=== PATIENT | male | born 1955 | race American Indian/Alaskan Native ===

== ENCOUNTER 2018-05-25 14:36 | Emergency (ER) | payer OTHER, BC ==
--- NOTE | 2018-05-25 14:48 | PDOC ---
Rapid Medical Evaluation Time Seen by Provider: 05/25/18 14:45 Medical Evaluation: Allergies Allergy/AdvReac Type Severity Reaction Status Date / Time No Known Allergies Allergy Verified 11/16/16 08:16 I have performed a brief in-person evaluation of this patient. The patient presents with a chief complaint of: right knee pain. banged right knee yesterday. Now has a bump that is tender. Patient is on Plavix. Pertinent physical exam findings: swelling to medial left knee area that is TTP. I have ordered the following: nothing The patient will proceed to the ED for further evaluation. Discharge Disposition - Diagnosis Knee pain, right - Referrals - Patient Instructions - Post Discharge Activity
[2018-05-25 14:50] VITALS: BP 115/85; PULSE 75; TEMP 98.5; BMI 27.9
--- NOTE | 2018-05-25 15:29 | PDOC ---
History of Present Illness - General Chief Complaint: Pain, Acute Stated Complaint: LEG PAIN Time Seen by Provider: 05/25/18 14:45 History Source: Patient Exam Limitations: No Limitations - History of Present Illness Initial Comments: 05/25/18 15:23 62-year-old male presents to the emergency with complaints of right inner knee pain. Patient states yesterday opened the car door when it struck his right knee. Patient states was able to ambulate and has no discomfort but noted the bump this morning and was concerned since he is currently on Plavix. Patient otherwise has no other complaints. Timing/Duration: 24 hours Severity: mild Associated Symptoms: reports: denies symptoms Past History - Travel Traveled outside of the country in the last 30 days: No - Past Medical History Allergies/Adverse Reactions: Allergies Allergy/AdvReac Type Severity Reaction Status Date / Time No Known Allergies Allergy Verified 11/16/16 08:16 Home Medications: Ambulatory Orders Gabapentin 300 mg PO BID 08/26/12 Levothyroxine [Synthroid -] 50 mcg PO DAILY 01/14/13 Metoprolol Succinate [Toprol XL -] 12.5 mg PO DAILY 01/14/13 Atorvastatin Ca [Lipitor] 80 mg PO DAILY 01/03/14 metFORMIN HCL [Glucophage -] 1,000 mg PO BID 01/03/14 Fluoxetine HCl [Prozac -] 40 mg PO DAILY 02/21/14 Clopidogrel Bisulfate [Plavix] 75 mg PO ASDIR 05/25/18 Anemia: No Asthma: No Cancer: No Cardiac Disorders: Yes (MITRAL VALVE PROLAPSE) CVA: No COPD: No CHF: No Dementia: No Diabetes: Yes (NIDDM) GI Disorders: Yes (DIVERTICULOSIS) Disorders: Yes (PROSTATITIS) HTN: Yes Hypercholesterolemia: Yes Liver Disease: No Seizures: No Thyroid Disease: Yes (HYPO) - Surgical History Abdominal Surgery: No Appendectomy: No Cardiac Surgery: No Cholecystectomy: No Lung Surgery: No Neurologic Surgery: No Orthopedic Surgery: Yes (RT WRIST SX, FUSION OF L 4-5, FUSION OF C5, C7,) - Immunization History Immunization Up to Date: No - Suicide/Smoking/Psychosocial Hx Smoking Status: No Smoking History: Never smoked Have you smoked in the past 12 months: No Number of Cigarettes Smoked Daily: 0 Hx Alcohol Use: No Drug/Substance Use Hx: No Substance Use Type: None Hx Substance Use Treatment: No Patient Lives Alone: No Review of Systems - Review of Systems Able to Perform ROS?: No Constitutional: No: Symptoms Reported Musculoskeletal: Yes: Joint Swelling Integumentary: Yes: Lumps. No: Bruising Neurological: No: Numbness, Paresthesia, Tingling, Dizziness *Physical Exam - Vital Signs Last Vital Signs Temp Pulse Resp BP Pulse Ox 98.5 F 75 16 115/85 99 05/25/18 14:47 05/25/18 14:47 05/25/18 14:47 05/25/18 14:47 05/25/18 14:47 - Physical Exam General Appearance: Yes: Nourished, Appropriately Dressed. No: Apparent Distress Vascular Pulses: Dorsalis-Pedis (R): 2+ Musculoskeletal: positive: Other (noted semi-firm mass approx. 3 x 4 cm to medial aspect of right knee. No skin discoloration. FROM of rt knee joint) ED Treatment Course - RADIOLOGY Radiology Studies Ordered: Category Date Time Status KNEE 3 POS-RIGHT [RAD] Stat Radiology 05/25/18 15:19 Ordered Medical Decision Making - Medical Decision Making 05/25/18 15:29 Patient right knee injury here for evaluation. Exam with semi-firm mass to the medial aspect of right patella. X-ray ordered to rule out etiology. 05/25/18 15:35 X-ray negative for acute findings. Will await final report from radiologist but will discharge patient home in the meanwhile. Patient left phone number to be contacted if needs follow-up. *DC/Admit/Observation/Transfer Diagnosis at time of Disposition: Knee pain, right - Discharge Dispostion Disposition: HOME Condition at time of disposition: Good - Referrals Referrals: Tone Hunter MD [Primary Care Provider] - - Patient Instructions Printed Discharge Instructions: DI for Contusion Additional Instructions: Continue to observe area and if noted to increase in size please return to the ED. Otherwise take Motrin or Tylenol for discomfort and apply ice as much as you can tolerate for the next 3 days. - Post Discharge Activity
== END 2018-05-25 15:39 | disposition home or self-care (01) ==
LOC: JERFT 14:36
DX: S80.01XA Contusion of right knee, initial encounter (principal); V88.8XXA Person injured in other specified noncollision transport accidents involving motor vehicle, nontraffic, initial encounter; Y93.89 Activity, other specified; Y92.89 Other specified places as the place of occurrence of the external cause; Y99.8 Other external cause status; I10 Essential (primary) hypertension; E11.9 Type 2 diabetes mellitus without complications; Z79.84 Long term (current) use of oral hypoglycemic drugs; E78.00 Pure hypercholesterolemia, unspecified; R01.1 Cardiac murmur, unspecified; E03.9 Hypothyroidism, unspecified; Z87.19 Personal history of other diseases of the digestive system; Z87.448 Personal history of other diseases of urinary system
CPT/HCPCS: 73562-TC-RT-FY; 99281-25

== ENCOUNTER 2019-04-30 06:42 | Day surgery (SDC) | payer OTHER, BC | END 2019-04-30 09:46 | disposition home or self-care (01) | LOC: JASU-ENDO 06:42 ==

== ENCOUNTER 2021-12-26 11:08 | Emergency (ER) | payer OTHER, BC ==
[2021-12-26 11:22] VITALS: BP 159/87; PULSE 88; TEMP 97.1; BMI 27.2
[2021-12-26] MEDS ORDERED: KETOROLAC TROMETHAMINE 30 MG/1 ML VIAL IM ONE (11:51)
[2021-12-26] MEDS ORDERED: KETOROLAC TROMETHAMINE 30 MG/1 ML VIAL ONE (11:55)
== END 2021-12-26 12:33 | disposition home or self-care (01) ==
LOC: JERFT 11:08
PROC: 3E0233Z Introduction of Anti-inflammatory into Muscle, Percutaneous Approach (ICD-10-PCS; principal; 2021-12-26)
DX: S60.221A Contusion of right hand, initial encounter (principal); W10.9XXA Fall (on) (from) unspecified stairs and steps, initial encounter; Y92.9 Unspecified place or not applicable
CPT/HCPCS: 73130-TC-RT-FY; 96372; 99284-25

== ENCOUNTER 2023-07-14 09:47 | Emergency (ER) | payer OTHER, BC ==
[2023-07-14 10:03] VITALS: BMI 24.7
[2023-07-14 11:31] LABS: URINE APPEARANCE CLEAR; URINE BILIRUBIN NEGATIVE (NEGATIVE); URINE COLOR YELLOW; URINE GLUCOSE (UA) 3+ (NEGATIVE); URINE KETONE NEGATIVE (NEGATIVE); URINE LEUK ESTERASE NEGATIVE (NEGATIVE); URINE NITRITE NEGATIVE (NEGATIVE); URINE PROTEIN NEGATIVE (NEGATIVE); URINE UROBILINOGEN 0.2 mg/dL (0.2-1.0)
[2023-07-14 11:32] LABS: EPI CELLS 1 /uL (0-25.1); HYALINE CASTS 0 /uL (0-3.1); URINE BACTERIA 0 /uL (0-1359); URINE RBC 8 /uL (0-23.9); URINE WBC 2 /uL (0-25.8)
[2023-07-14 11:45] LABS: BASO % 0.9 % (0-2.0); EOS % 2.1 % (0-4.5); HEMATOCRIT 43.5 % (35.4-49); LYMPH % 23.4 % (8-40); MCH 30.4 pg (25.7-33.7); MCHC 34.4 g/dl (32.0-35.9); MEAN CELL VOLUME 88.2 fl (80-96); MEAN PLT VOLUME 8.6 fl (7.5-11.1); MONO % 7.9 % (3.8-10.2); NEUT % 65.7 % (42.8-82.8); PLATELET COUNT 215 10^3/uL (134-434); RBC 4.93 M/mm3 (4.00-5.60); RDW 14.2 % (11.9-15.9); WHITE BLOOD COUNT 6.8 K/mm3 (4.0-10.0)
[2023-07-14 12:07] LABS: POTASSIUM 4.8 mmol/L (3.5-5.1)
[2023-07-14 12:09] LABS: ALBUMIN 3.8 g/dl (3.4-5.0); CALCIUM 9.6 mg/dL (8.5-10.1)
[2023-07-14 12:11] LABS: BLOOD UREA NITROGEN 28.8 mg/dL (7-18)
[2023-07-14 12:13] LABS: CREATININE 0.9 mg/dL (0.55-1.3)
[2023-07-14 12:14] LABS: BILIRUBIN,TOTAL 0.4 mg/dL (0.2-1); TOT PROT 6.8 g/dl (6.4-8.2)
[2023-07-14 12:31] LABS: LACTIC ACID 2.4 mmol/L (0.4-2.0)
[2023-07-14 15:59] VITALS: BP 118/75; PULSE 94; RESP 18; TEMP 98.1
== END 2023-07-14 16:38 | disposition home or self-care (01) ==
LOC: JER 09:47
DX: R10.30 Lower abdominal pain, unspecified (principal)
CPT/HCPCS: 36415; 74177-TC; 80053; 81003; 83605; 85025; 87086; 99285-25; Q9967

== ENCOUNTER 2024-02-06 03:56 | Day surgery (SDC) | payer OTHER, BC ==
[2024-01-27 13:36] VITALS: BMI 26.5
[2024-02-06] MEDS ORDERED: ONDANSETRON 4 MG/2 ML VIAL IVPUSH PRN (11:31)
[2024-02-06] MEDS ORDERED: oxyCODONE HCL 5 MG TABLET PO PRN (11:31)
[2024-02-06] MEDS ORDERED: ACETAMINOPHEN 325 MG TABLET (FP) PO PRN (11:31)
[2024-02-06] MEDS ORDERED: LACTATED RINGERS SOLUTION 1,000 ML IV SCH (11:45)
[2024-02-06] MEDS ORDERED: PROPOFOL 20 ML ONE ×2 (11:52→12:41)
[2024-02-06] MEDS ORDERED: MIDAZOLAM HCL 2 MG/2 ML SINGLE DOSE VIAL ONE ×2 (11:52→12:26)
[2024-02-06] MEDS ORDERED: LIDOCAINE HCL 1%, 10 MG/ML (20ML VIAL) ONE (12:22)
[2024-02-06] MEDS ORDERED: BUPIVACAINE HCL/PF 0.5% (5MG/ML) 10 ML VIAL ONE (12:22)
[2024-02-06] MEDS: ceFAZolin SODIUM 1 GM VIAL IVPB ONE (12:38)
[2024-02-06] MEDS: BUPIVACAINE HCL/PF 0.5% (5MG/ML) 10 ML VIAL IJ ONE (12:44)
[2024-02-06] MEDS: LIDOCAINE HCL 1%, 10 MG/ML (20ML VIAL) INF ONE (12:44)
[2024-02-06] MEDS ORDERED: KETOROLAC TROMETHAMINE 30 MG/1 ML VIAL ONE (13:04)
[2024-02-06] MEDS ORDERED: ONDANSETRON 4 MG/2 ML VIAL ONE (13:04)
[2024-02-06 13:45] VITALS: RESP 18
[2024-02-06 14:27] VITALS: BP 138/74; PULSE 78; TEMP 98.6
== END 2024-02-06 14:35 | disposition home or self-care (01) ==
LOC: JASU-SURG 03:56
PROVIDERS: ATTEND Orthopaedic Surgery
PROC: 0LN70ZZ Release Right Hand Tendon, Open Approach (ICD-10-PCS; principal; 2024-02-06 12:00)
DX: M65.321 Trigger finger, right index finger (principal)
CPT/HCPCS: 36415; 82010; 82962; 88304-TC

== ENCOUNTER 2024-02-17 14:37 | Emergency (ER) | payer OTHER, BC ==
[2024-02-17 14:46] VITALS: BP 144/80; PULSE 70; RESP 20; TEMP 97.1; BMI 25.7
[2024-02-17] MEDS ORDERED: guaiFENesin/D-METHORPHAN HB 10 ML UNIT-DOSE CUPS ONE (15:06)
[2024-02-17] MEDS: guaiFENesin/D-METHORPHAN HB 10 ML UNIT-DOSE CUPS PO ONE (15:07)
== END 2024-02-17 15:29 | disposition home or self-care (01) ==
LOC: JERFT 14:37
DX: R05.9 Cough, unspecified (principal); R09.81 Nasal congestion; B34.9 Viral infection, unspecified; Z20.822 Contact with and (suspected) exposure to COVID-19
CPT/HCPCS: 0241U-QW; 99283-25

== ENCOUNTER 2024-04-24 10:50 | Emergency (ER) | payer OTHER, BC ==
[2024-04-24 11:20] VITALS: BMI 27.2
[2024-04-24] MEDS ORDERED: ACETAMINOPHEN INJECTION 100 ML IVPB ONE (12:46)
[2024-04-24 13:26] LABS: PH,URINE 5.5 (5.0-8.0); URINE APPEARANCE CLEAR; URINE BILIRUBIN NEGATIVE (NEGATIVE); URINE COLOR YELLOW; URINE GLUCOSE (UA) 3+ (NEGATIVE); URINE KETONE NEGATIVE (NEGATIVE); URINE LEUK ESTERASE NEGATIVE (NEGATIVE); URINE NITRITE NEGATIVE (NEGATIVE); URINE PROTEIN NEGATIVE (NEGATIVE); URINE UROBILINOGEN 0.2 mg/dL (0.2-1.0)
[2024-04-24 13:29] LABS: BASO % 0.7 % (0-2.0); EOS % 2.7 % (0-4.5); HEMATOCRIT 41.6 % (35.4-49); HEMOGLOBIN 14.1 GM/dL (11.7-16.9); LYMPH % 27.4 % (8-40); MCH 29.5 pg (25.7-33.7); MCHC 33.8 g/dl (32.0-35.9); MEAN CELL VOLUME 87.2 fl (80-96); MEAN PLT VOLUME 8.6 fl (7.5-11.1); MONO % 10.3 % (3.8-10.2); NEUT % 58.9 % (42.8-82.8); PLATELET COUNT 196 10^3/uL (134-434); RBC 4.77 M/mm3 (4.00-5.60); RDW 14.3 % (11.9-15.9); WHITE BLOOD COUNT 5.8 K/mm3 (4.0-10.0)
[2024-04-24 13:38] LABS: ACTIVATED PTT 29.7 SECONDS (25.2-36.5); INR 0.95 (0.83-1.09); PROTHROMBIN TIME (PATIENT) 10.8 SEC (9.7-13.0)
[2024-04-24 13:59] LABS: POTASSIUM 4.2 mmol/L (3.5-5.1)
[2024-04-24 14:02] LABS: BLOOD UREA NITROGEN 30.4 mg/dL (7-18)
[2024-04-24 14:03] LABS: ALBUMIN 3.6 g/dl (3.4-5.0); CALCIUM 9.8 mg/dL (8.5-10.1)
[2024-04-24 14:08] LABS: BILIRUBIN,TOTAL 0.5 mg/dL (0.2-1); TOT PROT 6.5 g/dl (6.4-8.2)
[2024-04-24] MEDS: ACETAMINOPHEN 1000 MG/100 ML BAG IVPB ONE (14:10)
[2024-04-24 15:34] VITALS: BP 150/74; PULSE 68; RESP 18; TEMP 98.4
== END 2024-04-24 16:33 | disposition home or self-care (01) ==
LOC: JER 10:50
PROC: 3E033NZ Introduction of Analgesics, Hypnotics, Sedatives into Peripheral Vein, Percutaneous Approach (ICD-10-PCS; principal; 2024-04-24)
DX: R10.9 Unspecified abdominal pain (principal)
CPT/HCPCS: 36415; 74177-TC; 76870-TC; 80053; 81003; 83605; 83690; 85025; 85610; 85730; 86850; 86900; 86901; 87086; 99285-25; J0131

== ENCOUNTER 2024-06-27 05:15 | Day surgery (SDC) | payer OTHER, BC ==
[2024-06-26 11:09] VITALS: BMI 27.8
[2024-06-27 08:42] VITALS: TEMP 98.3
[2024-06-27 09:34] VITALS: RESP 20
[2024-06-27 09:36] VITALS: BP 145/57; PULSE 65
== END 2024-06-27 09:30 | disposition home or self-care (01) ==
LOC: JASU-ENDO 05:15
PROVIDERS: ATTEND Internal Medicine Gastroenterology
PROC: 0DJD8ZZ Inspection of Lower Intestinal Tract, Via Natural or Artificial Opening Endoscopic (ICD-10-PCS; principal; 2024-06-27 08:00)
DX: Z12.11 Encounter for screening for malignant neoplasm of colon (principal); K59.89 Other specified functional intestinal disorders; K64.8 Other hemorrhoids; K57.30 Diverticulosis of large intestine without perforation or abscess without bleeding; Z86.010 Personal history of colon polyps
CPT/HCPCS: 82962